=== PATIENT | male | born 1965 | race Caucasian/White ===

== ENCOUNTER 2016-09-05 14:28 | Observation (INO) | payer OTHER ==
--- NOTE | 2016-09-05 14:36 | EDPHY ---
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 He does have a history of what he describes as "panic attacks" that his reports as episodes where he appears "mentally absent. " He has never had a tonic clonic seizure in the past. 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 Upon arrival, he is alert and conversive but devolves into apparent partial seizure with lip smacking and and unfocused staring. Further history is unobtainable secondary to the patient's condition. REVIEW OF SYSTEMS: ROS is limited secondary to the patient's condition. Past Medical/Surgical History: Pituitary tumor, recent MRIs have revealed no evidence of tumor Social History: , lives in [place]. Physical Exam: General Appearance: Initially conversant; by end of exam, staring without response to questions, repetitive lip-smacking, does not follow commands; some of exam performed after seizure Eyes: Pupils equal and round, no conjunctival pallor or injection ENT, Mouth: Mucous membranes moist Neck: Normal inspection Respiratory: Lungs are clear to auscultation Cardiovascular: Regular rate and rhythm Gastrointestinal: Abdomen is soft and non- tender Neurological: Alert, oriented x3, cranial nerves II through XII intact, motor 5 /5, sensory intact to light touch Skin: Warm and dry, no rash Extremities: Nontender, no pedal edema Psychiatric: As above Constitutional: Initial Vital Signs Temperature (C) 36.6 C 09/05/16 14:34 Heart Rate 81 09/05/16 14:34 Respiratory Rate 20 09/05/16 14:34 Blood Pressure 145/83 H 09/05/16 14:34 O2 Sat (%) 90 L 09/05/16 14:34 O2 Delivery Mode Room Air O2 (L/minute) 2 Allergies/Adverse Reactions: CONTRAST DYE Allergy (Uncoded 09/05/16 14:33) Home Medications: Medication Instructions Recorded Cabergoline [Dostinex (*)] 0.25 mg PO DAILY 09/05/16 Desmopressin Acetate [Ddavp] 0.2 mg PO DAILY 09/05/16 Herbals/Supplements -Info Only 1 ea PO DAILY 09/05/16 Testosterone 50mg/Ml Cream (Hrt 1 brigitte TP DAILY 09/05/16 Base) Thyroid,Pork [Transverse Abdominal Muscle Surgeon Thyroid] 15 mg PO DAILY 09/05/16 Medical Decision Making - Diagnostics EKG Interpretation: EKG interpreted by me reveals normal sinus rhythm, rate 72, borderline inferior Q waves, no ST/T changes. Imaging: Study: CT of the head Indication: Known pituitary tumor, seizure Results: CT scan of the head was obtained. The results of the study are: nothing acute identified. The study was read by the radiologist, . I viewed the images myself on the PACS system. ED Course/Re-evaluation: This pt presents after a generalized seizure. From the clinical history, it appears that he has been having absence seizures for a while, without prior diagnosis. On my initial physical exam, had an episode of lip smacking and blank staring. He was given Ativan 1 mg IV. After this he was sleepy, but able to answer questions normally. Plan for EKG, labs, and CT of the head without contrast. 1545: On reevaluation, the patient remains confused. Again, he was initially responsive but shortly after my arrival in the room, the patient exhibited another episode of what appears to be a partial seizure characterized by staring distantly and lip-smacking. Plan for consultation with neurology and hospitalist for admission. 1616: Consultation with Dr. Fanta Barone, hospitalist, who accepts admission. Neurology was paged. Keppra 500 mg IV given. No further episodes of seizure- like activity while he was in the emergency department. Differential Diagnosis: Differential diagnosis includes though it is not limited to status epilepticus, hypoglycemia, intracranial hemorrhage, CVA, benzodiazepine withdrawal, alcohol withdrawal, epilepsy. - Data Points Laboratory Results: Laboratory Results 09/05/16 14:50 09/05/16 14:50 09/05/16 09/05/16 14:50 14:50 WBC 7.18 10^3/uL 10^3/uL (3.80-9.50) RBC 5.24 10^6/uL 10^6/uL (4.40-6.38) Hgb 15.9 g/dL g/dL (13.7-17.5) Hct 45.5 % % (40.0-51.0) MCV 86.8 fL fL (81.5-99.8) MCH 30.3 pg pg (27.9-34.1) MCHC 34.9 g/dL g/dL (32.4-36.7) RDW 12.2 % % (11.5-15.2) Plt Count 279 10^3/uL 10^3/uL (150-400) MPV 9.3 fL fL (8.7-11.7) Neut % (Auto) 48.7 % % (39.3-74.2) Lymph % (Auto) 39.8 % % (15.0-45.0) [place] % (Auto) 6.8 % % (4.5-13.0) Eos % (Auto) 3.1 % % (0.6-7.6) Baso % (Auto) 0.6 % % (0.3-1.7) Nucleat RBC Rel Count 0.0 % % (0.0-0.2) Absolute Neuts (auto) 3.50 10^3/uL 10^3/uL (1.70-6.50) Absolute Lymphs (auto) 2.86 10^3/uL 10^3/uL (1.00-3.00) Absolute Monos (auto) 0.49 10^3/uL 10^3/uL (0.30-0.80) Absolute Eos (auto) 0.22 10^3/uL 10^3/uL (0.03-0.40) Absolute Basos (auto) 0.04 10^3/uL 10^3/uL (0.02-0.10) Absolute Nucleated RBC 0.00 10^3/uL 10^3/uL (0-0.01) Immature Gran % 1.0 % % (0.0-1.1) Immature Gran # 0.07 10^3/uL 10^3/uL (0.00-0.10) Sodium 141 mEq/L mEq/L (134-144) Potassium 4.0 mEq/L mEq/L (3.5-5.2) Chloride 102 mEq/L mEq/L (97-110) Carbon Dioxide 23 mEq/l mEq/l (22-31) Anion Gap 16 mEq/L mEq/L (8-16) BUN 24 mg/dL H mg/dL (7-23) Creatinine 1.1 mg/dL mg/dL (0.7-1.3) Estimated GFR > 60 Glucose 115 mg/dL H mg/dL (70-100) Calcium 9.5 mg/dL mg/dL (8.5-10.4) Medications Given: Discontinued Medications Sodium Chloride (Ns) 1,000 mls @ 0 mls/hr IV ONCE ONE PRN Reason: Wide Open Stop: 09/05/16 14:51 Last Admin: 09/05/16 14:50 Dose: 1,000 mls Levetiracetam 500 mg/ Sodium (Chloride) 105 mls @ 420 mls/hr IV EDNOW ONE Stop: 09/05/16 16:36 Last Admin: 09/05/16 17:00 Dose: 105 mls Lorazepam (Ativan Injection) 1 mg IVP EDNOW ONE Stop: 09/05/16 14:47 Last Admin: 09/05/16 14:50 Dose: 1 mg Departure - Departure Disposition: [facility] Acute Clinical Impression: Seizure disorder Condition: Fair Report Scribed for: Beckie Galindo Report Scribed by: Virginia Luna Date of Report: 09/05/16 Time of Report: 14:36 Physician Review and Approval Statement: 09/05/16 14:36 Portions of this note were transcribed by a center medical director. I personally performed a history, physical exam, medical decision making, and confirmed accuracy of information the transcribed note.
[2016-09-05] MEDS ORDERED: LORazepam 2 MG/ML INJ ONE (14:42)
[2016-09-05] MEDS ORDERED: LORazepam 2 MG/ML INJ IVP ONE (14:46)
[2016-09-05] MEDS ORDERED: NS 1,000 ML IV ONE (14:50)
[2016-09-05 15:02] LABS: ABSOLUTE IMMATURE GRANULOCYTES 0.07 10^3/uL (0.00-0.10); ADD DIFF? NO; ADD MORPH? NO; ADD SCAN? NO; ATYPICAL LYMPHOCYTE FLAG 10 (0-99); FRAGMENT RBC FLAG 0 (0-99); HEMATOCRIT 45.5 % (40.0-51.0); HEMOGLOBIN 15.9 g/dL (13.7-17.5); LEFT SHIFT FLG 0 (0-99); LIPEMIA HEMOLYSIS FLAG 90 (0-99); MEAN CELL HEMOGLOBIN 30.3 pg (27.9-34.1); MEAN CELL HEMOGLOBIN CONCENTR. 34.9 g/dL (32.4-36.7); MEAN CELL VOLUME 86.8 fL (81.5-99.8); MEAN PLATELET VOLUME 9.3 fL (8.7-11.7); PLATELET CLUMPS FLAG 0 (0-99); PLATELET COUNT 279 10^3/uL (150-400); RED BLOOD CELL COUNT 5.24 10^6/uL (4.40-6.38); RED CELL DISTRIBUTION WIDTH 12.2 % (11.5-15.2)
--- NOTE | 2016-09-05 15:08 | CPEKG ---
Heart Rate: 72 RR Interval: 833 P-R Interval: 160 QRSD Interval: 92 QT Interval: 392 QTC Interval: 430 P [place]: 67 QRS [place]: 99 T Wave [place]: -7 EKG Severity - ABNORMAL ECG - EKG Impression: SINUS RHYTHM EKG Impression: PROBABLE RIGHT VENTRICULAR HYPERTROPHY EKG Impression: BORDERLINE INFERIOR Q WAVES EKG Impression: BORDERLINE T ABNORMALITIES, INFERIOR LEADS Electronically Signed By: Beckie Galindo 05-Sep-2016 19:46:11
[2016-09-05 15:25] LABS: ANION GAP 16 mEq/L (8-16); CALCIUM 9.5 mg/dL (8.5-10.4); CARBON DIOXIDE 23 mEq/l (22-31); CHLORIDE 102 mEq/L (97-110); CREATININE 1.1 mg/dL (0.7-1.3); GLOMERULAR FILTRATION RATE > 60; GLUCOSE 115 mg/dL (70-100); SODIUM 141 mEq/L (134-144)
[2016-09-05] MEDS ORDERED: levETIRAcetam 500 MG in NS 100 ML IV ONE (16:22)
[2016-09-05] MEDS ORDERED: ACETAMINOPHEN 325 MG TAB PO PRN (18:01)
[2016-09-05] MEDS ORDERED: ONDANSETRON 4 MG/2 ML VIAL IVP PRN (18:01)
[2016-09-05] MEDS ORDERED: ONDANSETRON DISINTEGRATING 4 MG TAB PO PRN (18:01)
[2016-09-05] MEDS ORDERED: LORazepam 2 MG/ML INJ IVP PRN (18:07)
[2016-09-05] MEDS ORDERED: IBUPROFEN 600 MG TAB PO PRN (18:20)
--- NOTE | 2016-09-05 18:53 | PDGENHP ---
History and Physical - Chief Complaint seizure - History of Present Illness 50 yo male with history of NAVEEN, hypothyroidism and prolactinoma presents to the ED after a grand mal seizure. He believes this was his first seizure. Further history from patient and ED physician is suspicious for a longer history of possible partial seizures. He has had many episodes during which he "blanks out " and his describes some lip smacking behaviors. He also has a history of a pituitary mass thought to be a prolactinoma. He has been managed with DDAVP and Cabergoline. He is followed by Endocrinology, has not seen Neurology or neurosurgery. He also gives a history of ANVEEN, on cpap. He describes difficulty sleeping due to what he believes to be sleep-induced pain. He has been tracking his deep sleep with an brigitte on his phone. Given his new tonic clonic seizure, he is admitted to the hospital for further management. History Information - Allergies/Home Medication List Allergies/Adverse Reactions: CONTRAST DYE Allergy (Uncoded 09/05/16 14:33) Home Medications: Cabergoline [Dostinex (*)] 0.25 mg PO DAILY 09/05/16 [Last Taken 09/05/16] Desmopressin Acetate [Ddavp] 0.2 mg PO DAILY 09/05/16 [Last Taken Unknown] Herbals/Supplements -Info Only 1 ea PO DAILY 09/05/16 [Last Taken Unknown] Testosterone 50mg/Ml Cream (Hrt Base) 1 brigitte TP DAILY 09/05/16 [Last Taken Unknown] Thyroid,Pork [Child Care Coordinator Thyroid] 15 mg PO DAILY 09/05/16 [Last Taken 09/05/16] I have personally reviewed and updated: family history, medical history, social history, surgical history - Past Medical History Additional medical history: Pituitary tumor / prolactinoma, NAVEEN, hypothyroid - Surgical History Reports: no pertinent surgical hx - Family History Positive for: non-pertinent - Social History Smoking Status: Never smoked Drug Use: None Additional social history: Lives with his , who is present at the bedside. Review of Systems ROS: 10pt was reviewed & negative except for what was stated in HPI & below Physical Exam Temp Pulse Resp BP Pulse Ox 36.4 C 57 L 16 125/79 H 100 09/05/16 17:35 09/05/16 17:35 09/05/16 17:35 09/05/16 17:35 09/05/16 17:35 O2 (L/minute) 3 Constitutional: no apparent distress Eyes: PERRL Ears, Nose, Mouth, Throat: moist mucous membranes, other (+frontal left tongue laceration) Cardiovascular: regular rate and rhythym, no murmur, rub, or gallop Respiratory: no respiratory distress, clear to auscultation Gastrointestinal: normoactive bowel sounds, soft, non-tender abdomen Skin: warm Musculoskeletal: full muscle strength Neurologic: AAOx3, CN II-XII Intact Psychiatric: interacting appropriately Lab Data & Imaging Review 09/05/16 14:50 09/05/16 14:50 WBC 7.18 10^3/uL (3.80-9.50) 09/05/16 14:50 RBC 5.24 10^6/uL (4.40-6.38) 09/05/16 14:50 Hgb 15.9 g/dL (13.7-17.5) 09/05/16 14:50 Hct 45.5 % (40.0-51.0) 09/05/16 14:50 MCV 86.8 fL (81.5-99.8) 09/05/16 14:50 MCH 30.3 pg (27.9-34.1) 09/05/16 14:50 MCHC 34.9 g/dL (32.4-36.7) 09/05/16 14:50 RDW 12.2 % (11.5-15.2) 09/05/16 14:50 Plt Count 279 10^3/uL (150-400) 09/05/16 14:50 MPV 9.3 fL (8.7-11.7) 09/05/16 14:50 Neut % (Auto) 48.7 % (39.3-74.2) 09/05/16 14:50 Lymph % (Auto) 39.8 % (15.0-45.0) 09/05/16 14:50 [place] % (Auto) 6.8 % (4.5-13.0) 09/05/16 14:50 Eos % (Auto) 3.1 % (0.6-7.6) 09/05/16 14:50 Baso % (Auto) 0.6 % (0.3-1.7) 09/05/16 14:50 Nucleat RBC Rel Count 0.0 % (0.0-0.2) 09/05/16 14:50 Absolute Neuts (auto) 3.50 10^3/uL (1.70-6.50) 09/05/16 14:50 Absolute Lymphs (auto) 2.86 10^3/uL (1.00-3.00) 09/05/16 14:50 Absolute Monos (auto) 0.49 10^3/uL (0.30-0.80) 09/05/16 14:50 Absolute Eos (auto) 0.22 10^3/uL (0.03-0.40) 09/05/16 14:50 Absolute Basos (auto) 0.04 10^3/uL (0.02-0.10) 09/05/16 14:50 Absolute Nucleated RBC 0.00 10^3/uL (0-0.01) 09/05/16 14:50 Immature Gran % 1.0 % (0.0-1.1) 09/05/16 14:50 Immature Gran # 0.07 10^3/uL (0.00-0.10) 09/05/16 14:50 Sodium 141 mEq/L (134-144) 09/05/16 14:50 Potassium 4.0 mEq/L (3.5-5.2) 09/05/16 14:50 Chloride 102 mEq/L (97-110) 09/05/16 14:50 Carbon Dioxide 23 mEq/l (22-31) 09/05/16 14:50 Anion Gap 16 mEq/L (8-16) 09/05/16 14:50 BUN 24 mg/dL (7-23) H 09/05/16 14:50 Creatinine 1.1 mg/dL (0.7-1.3) 09/05/16 14:50 Estimated GFR > 60 09/05/16 14:50 Glucose 115 mg/dL (70-100) H 09/05/16 14:50 Calcium 9.5 mg/dL (8.5-10.4) 09/05/16 14:50 Assessment & Plan Assessment: Seizure - New tonic-clonic seizure today with history of suspected partial seizures. He was given 500 mg IV Keppra in ED. I reviewed his head CT, which shows nothing acute, but is quite abnormal with sella turcica changes, possibly related to prior pituitary tumor. Will check a prolactin level. I discussed the case with Neurology, will obtain brain MRI with and without contrast in the morning. Will give an additional 750 mg oral Keppra tonight and continue this BID for seizure prevention. Neurochecks, seizure precautions planned. Neurology will consult in am. Will also likely need neurosurgery consult, will await brain MRI first. NAVEEN - home CPAP if able. Sounds as though he may have some other type of sleep disorder and should follow up with a sleep specialist as outpt. Hypothyroidism - check TSH, continue home thyroid dose. Full code Dispo - observation
[2016-09-05 19:40] LABS: PROLACTIN 5.9 ng/mL (3.7-17.9)
[2016-09-05] MEDS: levETIRAcetam 500 MG TAB PO SCH (20:12)
[2016-09-05] MEDS: MAGNESIUM OXIDE 400 MG TAB PO SCH (20:14)
[2016-09-05] MEDS ORDERED: DESMOPRESSIN 0.1 MG TAB PO SCH (21:00)
[2016-09-05] MEDS ORDERED: levETIRAcetam 500 MG TAB PO SCH (22:00)
[2016-09-06 07:44] VITALS: RESP 16; TEMP 98.1
[2016-09-06] MEDS: MAGNESIUM OXIDE 400 MG TAB PO SCH (07:59)
[2016-09-06] MEDS: levETIRAcetam 500 MG TAB PO SCH (07:59)
[2016-09-06] MEDS ORDERED: CABERGOLINE 0.5 MG TAB PO SCH (09:00)
[2016-09-06] MEDS ORDERED: THYROID PORK 15 MG PO SCH (09:00)
[2016-09-06] MEDS ORDERED: DESMOPRESSIN ACETATE 0.2 MG PO SCH (09:00)
[2016-09-06] MEDS ORDERED: DESMOPRESSIN 0.1 MG TAB PO SCH (09:00)
[2016-09-06] MEDS ORDERED: TESTOSTERONE 50 MG/ML TP SCH (09:00)
--- NOTE | 2016-09-06 11:08 | GCON ---
[f rep st] CONSULTATION NEUROLOGIC CONSULTATION REFERRING PHYSICIAN: Fanta Barone MD HISTORY: The patient is a 50-year-old gentleman who I am asked to see in neurologic consultation re garding seizure. History is obtained in review from the medical records as well as discussion with the patient, and then spoke to his on the telephone on speaker phone with the patient present a s well. He came to the emergency room yesterday afternoon because of seizure activity. 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 He has had these phenomena for more than 10 years, according to his . I wi ll detail what he describes and what she describes about these events in a moment. When he came to the emergency department, he was witnessed to have an event that was suspected to be a generalized t onic-clonic seizure. The patient received IV Keppra and then has been started on 750 mg p.o. b.i.d. He has never had this kind of an event that he knows. What he does describe are episodes in which he will feel seconds of what he calls a panic attack and then can have as long as 1 hour of trouble fully interacting. He says he will understand what people tell him but may only be able to respond with single words or very limited interaction. What his describes is times where he has a evita nk stare and she has seen lip-smacking and inability for him to effectively communicate. She has se en this occur when he is driving and at other times. It has happened at night. She has never witne ssed a full-blown seizure outside of these events. She says for years they have known about these a nd primary care has known about them and Endocrine, but no one has made any comments about possible seizures. The patient has really self identified them as panic attacks and has never seen a psychia trist nor been treated for panic attacks. The episodes are highly associated he says with poor slee p. He does have obstructive sleep apnea for which he uses CPAP and sleep is only fair at best much of the time. He has not had any history of alcohol abuse. No drug abuse. He had normal and development. No family history of seizures. These events are not precipitated by any other clear-c ut phenomenon, and the frequency is multiple per day or a few per week. The longest he can ever rem ember going without an event is perhaps a month in the last 10-14 years. No specific head trauma. He has a known history of a pituitary adenoma, followed by endocrine, and taking medications for jenni t. Otherwise, no fever, chills, nausea, vomiting, or diarrhea. No chest pain, shortness of breath. Sometimes he has palpitations. 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 SOCIAL HISTORY: He is . Lives with his . He is not a smoker. Alcohol is consumed only a few times per year. MEDICATIONS: Cabergoline, desmopressin, some herbals, testosterone and some thyroid. FAMILY HISTORY: There is a family history of dementia. PHYSICAL EXAM: VITAL SIGNS: Blood pressure is 104/64, pulse of 54, respirations 16, temperature 36 .7. GENERAL: He is well developed, in no acute distress. Eyes are clear. NECK: Supple with no b ruits or masses. CARDIAC: Regular rate and rhythm. No murmur. NEUROLOGIC: He is alert and atten tive with clear and fluent speech, and oriented to person, place, and time. He has good remote anne ry but recent memory is decreased for this event in particular. Normal fund of knowledge. Pupils a re 3 mm and reactive. Extraocular movements are intact. Normal facial sensation and strength. Pal ate elevates symmetrically. Tongue protrudes midline. Motor exam: Normal muscle bulk and tone. 5/ 5 strength. No abnormal movements. Sensation is preserved for temperature and light touch. The head CT was reviewed and shows changes of the pituitary tumor but nothing else more specific is evident. CBC is normal. The electrolytes are unremarkable. Normal prolactin level. EKG sinus rhy thm. IMPRESSION: The patient has a history that sounds suspicious for complex partial seizures and less likely panic attacks. Although he calls these panic attacks, the description is not very consistent with that. What his describes would be fairly classic for complex partial seizure phenomena w ith lip smacking, staring blankly and poor responsiveness. He is at risk for generalized tonic-clon ic seizures as occurred with the event the other day for which he was hospitalized. As a result, he is restricted from driving for 3 months and needs to be on anticonvulsant therapy as we further sor t this out. Brain MRI is needed. This cannot be done with contrast because of his history of sensi tivity and bad reaction. We will still have a reasonable yielded looking for anomalies that might e xplain this. The pituitary tumor should not cause seizures. He was then given my contact informati on to arrange for outpatient EEG. He should continue on Keppra 750 mg b.i.d. He will then establis h a followup office visit with me in the next week or 2, once he has had the EEG. I answered questi ons from the patient as well as his , and outlined the information to them regarding seizures an d the fact that this is the most likely working diagnosis at this point. Differential consideration s do include non-epileptic seizure events as well as anxiety or panic, but these descriptions just d o not sound very much like a panic attack. Primary cardiac arrhythmias seem unlikely in his case. The patient's nurse was informed of the plan as well. /[id number]/MODL
[2016-09-06 11:51] VITALS: BP 112/71; PULSE 66; O2SAT 94
--- NOTE | 2016-09-06 13:47 | PDDCSUM ---
Discharge Summary Discharge Summary: Dates of service: 09/05-09/06/16 Discharge dx: # seizure # prolactinoma # panhypopituitarism Consultations: neurology Procedures perfomred: head CT, brain mri Hospital course by problem # seizure: likely 2nd seizure this patient has had in the past month, in setting of prolactinoma s/p resection with resultant scar tissue but no evidence of mass or other acute abnormality. Started on keppra and will f/u with neurology in the next week or two # prolactinoma: as above, no e/o recurrence # panhypopituitarism: continue op meds Dc home f/u with neurology meds :see EHR, new addition of keppra avoid driving and other potentially dangerous activities > 35 min spent in dc of patient, more than half in face to face counseling regarding f/u and seizure precautions
== END 2016-09-06 14:31 | disposition home or self-care (01) ==
LOC: F3N 17:30
PROVIDERS: ADMIT Hospitalist; ATTEND Internal Medicine
DX: R56.9 Unspecified convulsions (principal); D35.2 Benign neoplasm of pituitary gland; E23.0 Hypopituitarism; G47.33 Obstructive sleep apnea (adult) (pediatric); Z91.041 Radiographic dye allergy status
CPT/HCPCS: 70450; 70551; 93005; 96361; 96365; 96375; 99285; G0378; J1953; J8515

== ENCOUNTER → 2016-09-22 | Outpatient (CLI) | payer OTHER ==
--- NOTE | 2016-09-25 13:41 | CPEEG ---
DATE OF STUDY: 09/22/2016 DATE OF INTERPRETATION: 09/25/2016. INTERPRETATION: This 4-hour video EEG recording is abnormal due to the presence of frequent potenti ally epileptogenic abnormalities over the left temporal head region. These findings would be consis tent with a focal seizure disorder. In addition, there was a mild degree of focal slowing over the left temporal head region. These findings would be consistent with a mild focal disturbance of cere bral function in these regions. During the video EEG monitoring session, the patient did not have a ny clinical events or electrographic seizure discharges. REPORT: This 4-hour video EEG contains 10 Hz alpha activity to the posterior head regions. There w as a mild degree of focal slowing over the left temporal head region on an intermittent basis, prima rily composed of low-amplitude polymorphic theta activity. The primary feature of this recording wa s the presence of frequent runs of temporal intermittent rhythmic delta activity (TIRDA). The left TIRDA was present at baseline and occurred in runs lasting 5-10 seconds. There was no additional ac tivation with photic stimulation or hyperventilation. The patient became drowsy and fell into susta ined sleep during the study. During drowsiness and sleep, there was additional activation of occasi onal left temporal spikes and sharp waves. The patient did not have any clinical events or electrographic seizure discharges during the video E EG monitoring session. /[id number]/MODL
== END ==
LOC: FCPNEURO 07:44
PROVIDERS: ATTEND Psychiatry & Neurology Neurology
DX: R56.9 Unspecified convulsions (principal); R94.01 Abnormal electroencephalogram [EEG]